=== PATIENT | male | born 1940 | race Caucasian/White ===

== ENCOUNTER 2016-08-28 13:13 | Inpatient (IN) | payer MEDICARE ==
[~2016-08-28] VITALS: Ht 190.5 cm; Wt 142.9 kg
[2016-08-28 18:20] VITALS: BP 156/68; BMI 39.4
--- NOTE | 2016-08-28 18:32 | NUR ---
SITTING UP IN BED WATCHING TV. DENIES PAIN OR NEEDS. CALL LIGHT IN REACH
[2016-08-28 18:38] VITALS: BP 156/68
--- NOTE | 2016-08-28 20:00 | NUR ---
PT IN BED WITH HOB UP FOR COMFORT. VISITOR AT BEDSIDE. ALERT & ORIENTED. EDEMA IN ARMS AND LEGS. ARAUJO. FSBS ACHS. O2 @ 2L VIA N/C. NO IV. BED IN LOWEST POSITION AND CALL LIGHT WITHIN REACH.
--- NOTE | 2016-08-28 22:50 | NUR ---
PT. IN BED WITH HOB UP FOR COMFORT AND REQUESTING TO HAVE AIR TURNED ON THE ROOM WAS STUFFY. COMPLIED WITH PT'S REQUEST. ARAUJO TO BSD WITHOUT ANY PROBLEMS AND HE IS WEARING HIS N/C O2 AT 2L/MIN WITHOUT ANY S/S DISTRESS. CALL LIGHT WITHIN REACH.
--- NOTE | 2016-08-29 02:50 | NUR ---
PT IN BED WITH HOB UP FOR COMFORT. EYES CLOSED. CHEST RISING AND FALLING. BED IN LOWEST POSITION AND CALL LIGHT WITHIN REACH.
--- NOTE | 2016-08-29 03:35 | NUR ---
PT IN BED WITH HOB UP FOR COMFORT. EYES CLOSED. RESPIRATIONS EVEN & UNLABORED. BED IN LOWEST POSITION AND CALL LIGHT WITHIN REACH.
[2016-08-29 08:00] VITALS: BP 184/72
--- NOTE | 2016-08-29 08:00 | NUR ---
SHIFT ASSMT COMPLETED.
--- NOTE | 2016-08-29 12:00 | NUR ---
SITTING UP EATING LUNCH.DENIES NEEDS.
[2016-08-29 15:59] VITALS: Ht 190.5 cm; Wt 142.9 kg
--- NOTE | 2016-08-29 16:00 | NUR ---
RESTING QUIETLY.CL IN REACH.
--- NOTE | 2016-08-29 19:50 | NUR ---
SIT UP IN BED AND WATCH TV.
[2016-08-30 01:56] VITALS: BP 176/76
--- NOTE | 2016-08-30 03:05 | NUR ---
RESTING IN BED, EYES CLOSED.
[2016-08-30 08:00] VITALS: BP 157/79
--- NOTE | 2016-08-30 08:00 | NUR ---
SHIFT ASSMT COMPLETED.DENIES NEEDS.PLAN TO DC FC TODAY.
--- NOTE | 2016-08-30 11:38 | NUR ---
AUBREY HERNÁNDEZ'Franki.INSTRUCTED TO CALL WHEN FEELING THE URGE TO VOID.
--- NOTE | 2016-08-30 16:00 | NUR ---
UP TO BATHROOM WITH SBA,VOIDED AND HAD FORMED BROWN BM.AMBULATED BACK TO BED.PULSE OX CHECKED AND NOTED TO BE 85 WITH SLIGHT SOB.PLACED BACK ON O2@2L/NC.
--- NOTE | 2016-08-30 19:50 | NUR ---
DAY SHIFT NURSE REPORT PT PULSE OX IS 85% THIS AFTERNOON. RECHECK PULSE OX UP TO 95%.
--- NOTE | 2016-08-30 22:45 | NUR ---
PROVIDED PATIENT WITH A 2ND BLANKET. SAYS HE IS COLD.
--- NOTE | 2016-08-30 23:28 | NUR ---
REST IN BED, EYE CLOSE, BED LOW, CALL LIGHT WITHIN REACH.
[2016-08-31 00:55] VITALS: BP 143/71
--- NOTE | 2016-08-31 03:39 | NUR ---
ASSISTED PT TO BATHROOM AND BACK TO BED.
[2016-08-31 05:48] LABS: BASOPHILS 0.4 % (0-2); EOSINOPHILS 3.8 % (0-7); HEMATOCRIT 32.5 % (42.0-54.0); HEMOGLOBIN 10.4 g/dL (13.5-17.5); IMMATURE GRANULOCYTES 0.2 % (0-5); LYMPHOCYTES 18.9 % (15-50); MCH 29.8 pg (26.0-34.0); MCV 93.1 fL (80.0-100.0); MONOCYTES 5.8 % (2-11); NEUTROPHILS 70.9 % (40-80); PLATELET COUNT 234 10x3/uL (130-400); RBC 3.49 10x6/uL (4.20-6.10); RDW 13.9 % (11.5-14.5)
[2016-08-31 05:58] LABS: CALC OSMOLALITY 284 mosm/kg (275-300); CALCIUM 8.2 mg/dL (8.5-10.1); CARBON DIOXIDE 37.1 mmol/L (21.0-32.0); CHLORIDE - SERUM 102 mmol/L (98-107); CREATININE - SERUM 0.8 mg/dL (0.6-1.3); GLUCOSE 128 mg/dL (74-106); POTASSIUM - SERUM 3.4 mmol/L (3.5-5.1); SODIUM 141 mmol/L (136-145); UREA NITROGEN 17 mg/dL (7-18); eGFR NON AFRICAN AMERICAN > 90 mL/min (90-120)
--- NOTE | 2016-08-31 08:04 | NUR ---
RESTING QUIETLY IN BED. EYES CLOSED. CALL SLIGHT IN REACH
[2016-08-31 09:14] VITALS: BP 142/67
--- NOTE | 2016-08-31 14:37 | NUR ---
RESTING QUIETLY IN BED. EYES CLOSED. CALL LIGHT IN REACH
--- NOTE | 2016-08-31 19:16 | NUR ---
ASSISTED TO SCOOT UP IN BED. DENIES PAIN. CALL LIGHT IN REACH
--- NOTE | 2016-08-31 20:00 | NUR ---
PT IN BED WITH HOB UP FOR COMFORT. WATCHING TV. ALERT & ORIENTED. MEDS WHOLE. O2 @ 2L VIA N/C. NO IV. CHEST INCISION. RT INNER KNEE/THIGH SCAB. BED IN LOWEST POSITION AND CALL LIGHT WITHIN REACH.
[2016-08-31 20:07] VITALS: BP 154/67
--- NOTE | 2016-09-01 | NUR ---
PT IN BED WITH HOB UP FOR COMFORT. EYES CLOSED. RESPIRATIONS EVEN. BED IN LOWEST POSITION AND CALL LIGHT WITHIN REACH.
--- NOTE | 2016-09-01 01:00 | NUR ---
IN BED, EYES CLOSED. RESPIRATIONS UNLABORED.
--- NOTE | 2016-09-01 03:55 | NUR ---
PT IN BED WITH HOB UP FOR COMFORT. EYES CLOSED. CHEST RISING AND FALLING. BED IN LOWEST POSITION AND CALL LIGHT WITHIN REACH.
--- NOTE | 2016-09-01 07:18 | NUR ---
RESTING QUIETLY IN BED WITH EYES CLOSED. CALL LIGHT IN REACH
[2016-09-01 08:52] VITALS: BP 150/73
[2016-09-01 19:15] VITALS: BP 123/65
--- NOTE | 2016-09-01 23:15 | NUR ---
PT IN BED WITH HOB UP FOR COMFORT. EYES CLOSED. CHEST RISING AND FALLING. BED IN LOWEST POSITION AND CALL LIGHT WITHIN REACH.
--- NOTE | 2016-09-02 03:50 | NUR ---
RESTING IN BED, EYES CLOSED. RESPIRING QUIETLY.
[2016-09-02 06:53] LABS: BASOPHILS 0.9 % (0-2); HEMATOCRIT 32.8 % (42.0-54.0); HEMOGLOBIN 10.6 g/dL (13.5-17.5); IMMATURE GRANULOCYTES 0.2 % (0-5); LYMPHOCYTES 22.2 % (15-50); MCHC 32.3 g/dL (31.0-37.0); MCV 92.9 fL (80.0-100.0); MEAN PLATELET VOLUME 11.3 fL (7.4-10.4); MONOCYTES 6.8 % (2-11); NEUTROPHILS 64.9 % (40-80); PLATELET COUNT 225 10x3/uL (130-400); RBC 3.53 10x6/uL (4.20-6.10); RDW 14.4 % (11.5-14.5); WBC 4.4 10x3/uL (4.8-10.8)
[2016-09-02] MEDS ORDERED: ACETAMINOPHEN325 MG PO (07:00)
[2016-09-02] MEDS ORDERED: ELIQUIS5 MG PO (07:00)
[2016-09-02] MEDS ORDERED: CORDARONE200 MG PO (07:00)
[2016-09-02] MEDS ORDERED: LASIX40 MG PO (07:06)
[2016-09-02] MEDS ORDERED: COLACE100 MG PO (07:06)
[2016-09-02] MEDS ORDERED: PROTONIX40 MG PO (07:07)
[2016-09-02] MEDS ORDERED: PRINIVIL20 MG PO (07:07)
[2016-09-02] MEDS ORDERED: BAYER CHEWABLE81 MG PO (07:09)
[2016-09-02] MEDS ORDERED: POTASSIUM CHLO10 ME1 PO (07:09)
[2016-09-02] MEDS ORDERED: METOPROLOL TART50 MG PO (07:10)
[2016-09-02] MEDS ORDERED: LIPITOR40 MG PO (07:10)
[2016-09-02] MEDS ORDERED: MIRALAX17 GM PO (07:13)
--- NOTE | 2016-09-02 07:13 | NUR ---
INTRODUCED SELF TO PT, PT STATES NO NEEDS AT THIS TIME, WILL CONTINUE TO MONITOR, CALL LIGHT WITHIN REACH.
[2016-09-02 07:40] LABS: CALC OSMOLALITY 282 mosm/kg (275-300); CALCIUM 8.6 mg/dL (8.5-10.1); CARBON DIOXIDE 34.9 mmol/L (21.0-32.0); CHLORIDE - SERUM 102 mmol/L (98-107); CREATININE - SERUM 0.6 mg/dL (0.6-1.3); GLUCOSE 108 mg/dL (74-106); POTASSIUM - SERUM 3.9 mmol/L (3.5-5.1); SODIUM 141 mmol/L (136-145); UREA NITROGEN 16 mg/dL (7-18); eGFR NON AFRICAN AMERICAN > 90 mL/min (90-120)
[2016-09-02 08:09] VITALS: BP 123/69
--- NOTE | 2016-09-02 09:40 | NUR ---
MORNING MEDICATION GIVEN, PT TOLERATED WELL, ASSISTED PT TO BATHROOM AND BACK TO BED WITHIN MINIMAL ASSISTANCE, PT STATES NO NEEDS AT THIS TIME, WILL CONTINUE TO MONITOR, CALL LIGHT WITHIN REACH.
--- NOTE | 2016-09-02 13:36 | NUR ---
PT IN PHYSICAL THERAPY. WILL CONTINUE TO MONITOR.
--- NOTE | 2016-09-02 15:37 | NUR ---
RESTING QUIETLY.IN BED.DENIES NEEDS.CL IN REACH.
--- NOTE | 2016-09-02 16:57 | NUR ---
PT SITTING UP IN CHAIR VISITING WITH FAMILY, PT STATES NO NEEDS AT THIS TIME, WILL CONTINUE TO MONITOR, CALL LIGHT WITHIN REACH.
--- NOTE | 2016-09-02 17:56 | NUR ---
PT SITTING UP IN CHAIR EATING DINNER, PT STATES NO NEEDS AT THIS TIME, WILL CONTINUE TO MONITOR, CALL LIGHT WITHIN REACH.
--- NOTE | 2016-09-02 20:20 | NUR ---
ASSISTED PT TO BATHROOM AND BACK TO BED.
--- NOTE | 2016-09-02 23:55 | NUR ---
RESTING QUIETLY IN BED WITH EYE CLOSE, CALL LIGHT WITHIN REACH.
[2016-09-02 23:57] VITALS: BP 125/57
--- NOTE | 2016-09-03 02:00 | NUR ---
PT RESTING, EYES CLOSED. RR ARE EVEN AND UNLABORED. BED LOW. CL IN REACH.
--- NOTE | 2016-09-03 07:30 | NUR ---
PATIENT IS ALERT/ORIENT. OXYGEN ON AT 2L PER N/C. MID CHEST INCISION OPEN TO AIR. SITTING UP AT BEDSIDE TO EAT BREAKFAST. CALL LIGHT WITHIN REACH. VOICES NO NEEDS AT THIS TIME.
[2016-09-03 08:39] VITALS: BP 141/67
--- NOTE | 2016-09-03 09:30 | NUR ---
PRN PAIN MEDICATION GIVEN FOR UPPER BACK PAIN PER PATIENT REQUEST. PATIENT DOWN IN REHAB ROOM. WORKING WITH OCCUPATIONAL THERAPIST.
--- NOTE | 2016-09-03 11:40 | NUR ---
PT RESTING IN BED WATCHING TV, PT STATES NO NEEDS AT THIS TIME, WILL CONTINUE TO MONITOR, CALL LIGHT WITHIN REACH.
--- NOTE | 2016-09-03 13:12 | NUR ---
PATIENT STATES PAIN AT A 8 IN LOWER AND UPPER BACK, PAIN MEDICATION GIVEN, WILL CONTINUE TO MONITOR, CALL LIGHT WITHIN REACH.
--- NOTE | 2016-09-03 13:45 | NUR ---
SITTING UP IN WC IN THERAPY.
--- NOTE | 2016-09-03 15:36 | NUR ---
Nutrition Monitoring and Eval: Pt is eating 81% meal avg on a diabetic diet. Meds and labs reviewed. +BM. Pt remains at low nutritional risk at this time based on current chart review. RD will continue to monitor pt progress for duration of hospital stay.
--- NOTE | 2016-09-03 18:31 | NUR ---
PT SITTING UP IN WHEELCHAIR VISITING WITH FAMILY, PT STATES NO NEEDS AT THIS TIME, WILL CONTINUE TO MONITOR, CALL LIGHT WITHIN REACH.
[2016-09-03 20:00] VITALS: BP 122/58
--- NOTE | 2016-09-03 23:23 | NUR ---
RESTING IN BED AND WATCHING TV.
--- NOTE | 2016-09-04 01:49 | NUR ---
REST IN BED, STATE ROOM TEMPTURE IS COLD, ADJUST AIR CONDITIONER.
--- NOTE | 2016-09-04 02:10 | NUR ---
PT RESTING QUIETLY, NO S/S OF ACUTE DISTRESS. RESPIRATIONS REGULAR AND UNLABORED.
[2016-09-04 06:39] LABS: BASOPHILS 0.7 % (0-2); HEMATOCRIT 33.6 % (42.0-54.0); HEMOGLOBIN 10.6 g/dL (13.5-17.5); LYMPHOCYTES 24.8 % (15-50); MCH 29.2 pg (26.0-34.0); MCHC 31.5 g/dL (31.0-37.0); MCV 92.6 fL (80.0-100.0); MEAN PLATELET VOLUME 11.4 fL (7.4-10.4); MONOCYTES 7.7 % (2-11); NEUTROPHILS 61.8 % (40-80); PLATELET COUNT 196 10x3/uL (130-400); RBC 3.63 10x6/uL (4.20-6.10); RDW 14.5 % (11.5-14.5); WBC 4.4 10x3/uL (4.8-10.8)
[2016-09-04 06:51] LABS: CALC OSMOLALITY 283 mosm/kg (275-300); CALCIUM 8.6 mg/dL (8.5-10.1); CARBON DIOXIDE 35.7 mmol/L (21.0-32.0); CHLORIDE - SERUM 102 mmol/L (98-107); CREATININE - SERUM 0.8 mg/dL (0.6-1.3); GLUCOSE 105 mg/dL (74-106); POTASSIUM - SERUM 3.1 mmol/L (3.5-5.1); SODIUM 142 mmol/L (136-145); UREA NITROGEN 16 mg/dL (7-18); eGFR NON AFRICAN AMERICAN > 90 mL/min (90-120)
--- NOTE | 2016-09-04 08:00 | NUR ---
SHIFT ASSMT COMPLETED.BREAKFAST TRAY GIVEN.INCISIONS C/D/I.
[2016-09-04 08:54] VITALS: BP 152/75
--- NOTE | 2016-09-04 12:00 | NUR ---
SITTING UP IN ROOM VISITING WITH FAMILY.LUNCH GIVEN.
--- NOTE | 2016-09-04 16:00 | NUR ---
visiting with family,planning on dc home tomarrow if ok with .cm spoke with therapy and was clear.cl in reach.
[2016-09-04 19:06] VITALS: BP 113/59
--- NOTE | 2016-09-04 19:30 | NUR ---
PT RESTING IN BED, DENIES ANY NEEDS, RESPIRATIONS REGULAR AND UNLABORED.
--- NOTE | 2016-09-04 22:15 | NUR ---
PT RESTING QUIETLY, AROUSED FOR PM MEDICATIONS AND ASSESSMENT. PT VERBALIZED A DESIRE TO BE DISCHARGED HOME IN THE MORNING. PT CONVERSIVE, DENIES ANY OTHER NEEDS.
--- NOTE | 2016-09-05 01:00 | NUR ---
PT RESTING QUIETLY, NO S/S OF ACUTE DISTRESS. RESPIRATIONS REGULAR AND UNLABORED, EYES CLOSED.
--- NOTE | 2016-09-05 04:29 | NUR ---
PT RESTING QUIETLY, NO S/S OF ACUTE DISTRESS. RESPIRATIONS REGULAR AND UNLABORED. EYES CLOSED, LYING ON SIDE.
--- NOTE | 2016-09-05 07:47 | NUR ---
RESTING QUIETLY IN BED. EYES CLOSED. CALL LIGHT IN REACH
--- NOTE | 2016-09-05 08:00 | NUR ---
SITTING UP IN BED EATING BREAKFAST. DENIES NEEDS OR PROBLEMS.
[2016-09-05] MEDS ORDERED: HYDROCODON-ACE1 EAC7 PO (12:09)
--- NOTE | 2016-09-05 12:15 | NUR ---
D/C HOME WITH ALL PERSONAL BELONGINGS. WENT OVER D/C INSTRUCTIONS WITH PT AND SON. HE PHARMACY IS CLOSED AND HE ASKED THAT ALL MEDS BE CALLED IN ON WEDNESDAY TO [facility].
[2016-09-05 16:18] VITALS: BP 139/61
--- NOTE | 2016-09-07 09:58 | NUR ---
LATE ENTRY PATIENT DISCHARGED HOME WITH FAMILY ON 09/05/16. [facility] WILL FOLLOW WITH PATIENT AT HOME. NO DME NEEDED AT THIS TIME. DR. PITT 09/29/16 @ 12:15, CHEST X-RAY AT 11:15. DR. FLORES [place] , OFFICE WILL CALL WITH AN APPOINTMENT. PATIENT CHOICE FORM FOR HOME HEALTH AND [facility] FORM SIGNED, EXPLAINED AND FILED IN CHART. ORDERS HAVE BEEN FAXED WITH CONFORMATION RECIEVED
== END 2016-09-05 12:15 | disposition home health service (06) | DRG 91 ==
LOC: D.REHAB 13:13
PROVIDERS: ADMIT Emergency Medicine
DX: G72.81 Critical illness myopathy (principal); A41.9 Sepsis, unspecified organism; J96.01 Acute respiratory failure with hypoxia; E46 Unspecified protein-calorie malnutrition; Z95.1 Presence of aortocoronary bypass graft; I10 Essential (primary) hypertension; R53.1 Weakness; E11.9 Type 2 diabetes mellitus without complications; I95.9 Hypotension, unspecified; E78.5 Hyperlipidemia, unspecified; I25.10 Atherosclerotic heart disease of native coronary artery without angina pectoris